=== PATIENT | female | born 1945 | race Caucasian/White ===

== ENCOUNTER 2016-12-05 10:32 | Day surgery (SDC) | payer OTHER ==
[~2016-12-05] VITALS: Ht 156.2 cm; Wt 64.8 kg
[~2016-12-05 10:32] MED LIST: ASPIRIN81 M2 PO; ASTEPRO 0.15%30 ML BOTH NARES; CLEOCIN T60 ML TP; COZAAR50 MG PO; CYANOCOBALAM1000 MCG PO; DESOWEN60 GM TP; FLONASE16 G1 BOTH NARES; HYDROCHLOROTHIA25 MG PO; K-DUR10 MEQ PO; LIORESAL10 MG PO; LIPITOR20 MG PO; LYRICA75 MG PO; VITAMIN D2000 UNIT PO; ZYRTEC10 M3 PO
== END 2016-12-05 12:12 | disposition home or self-care (01) ==
LOC: PAIN 10:32 → SDC 11:15 → PAIN 12:12
DX: M47.816 Spondylosis without myelopathy or radiculopathy, lumbar region (principal); M54.5 Low back pain; G89.29 Other chronic pain; M54.12 Radiculopathy, cervical region; I10 Essential (primary) hypertension; E78.5 Hyperlipidemia, unspecified; M46.1 Sacroiliitis, not elsewhere classified; I69.398 Other sequelae of cerebral infarction; K21.9 Gastro-esophageal reflux disease without esophagitis
CPT/HCPCS: J1030; J3010; S0020

== ENCOUNTER 2017-03-06 07:27 | Day surgery (SDC) | payer OTHER ==
[~2017-03-06 07:27] MED LIST changes: -ASPIRIN81 M2 PO; +COZAAR25 MG PO; -COZAAR50 MG PO; +LO-DOSE ASPIRIN81 M1 PO; +NIZORAL 2% CREA15 GM TP
== END 2017-03-06 10:00 | disposition home or self-care (01) ==
LOC: PAIN 07:27 → SDC 08:30 → PAIN 10:00
DX: M47.26 Other spondylosis with radiculopathy, lumbar region (principal); M48.061 Spinal stenosis, lumbar region without neurogenic claudication; M41.9 Scoliosis, unspecified; M62.838 Other muscle spasm; I69.398 Other sequelae of cerebral infarction; G89.29 Other chronic pain; M79.2 Neuralgia and neuritis, unspecified; Q21.1 Atrial septal defect; K21.0 Gastro-esophageal reflux disease with esophagitis; E78.5 Hyperlipidemia, unspecified; I10 Essential (primary) hypertension; K58.9 Irritable bowel syndrome, unspecified; Z91.040 Latex allergy status; Z79.82 Long term (current) use of aspirin; Z91.013 Allergy to seafood; Z88.1 Allergy status to other antibiotic agents; Z88.8 Allergy status to other drugs, medicaments and biological substances
CPT/HCPCS: J1030; J2250; J3010; S0020

== ENCOUNTER 2017-03-13 14:01 | Day surgery (SDC) | payer OTHER ==
[~2017-03-13] VITALS: Ht 156.2 cm; Wt 64.8 kg
== END 2017-03-13 16:16 | disposition home or self-care (01) ==
LOC: PAIN 14:01
DX: M47.816 Spondylosis without myelopathy or radiculopathy, lumbar region (principal); M54.5 Low back pain; G89.29 Other chronic pain; M48.061 Spinal stenosis, lumbar region without neurogenic claudication; I10 Essential (primary) hypertension; K21.9 Gastro-esophageal reflux disease without esophagitis; M54.12 Radiculopathy, cervical region; E78.5 Hyperlipidemia, unspecified; Z86.718 Personal history of other venous thrombosis and embolism; Z86.73 Personal history of transient ischemic attack (TIA), and cerebral infarction without residual deficits; Z79.82 Long term (current) use of aspirin
CPT/HCPCS: J1030; J2250; J3010; S0020